=== PATIENT | female | born 1990 | race American Indian/Alaskan Native ===

== ENCOUNTER 2020-05-31 09:35 | Outpatient (CLI) | payer OTHER ==
--- NOTE | 2020-05-31 11:03 | Ultrasound Report ---
ULTRASOUND BREAST BILATERAL COMPLETE, 05/31/2020 CLINICAL INFORMATION / INDICATION: MASTODYNIA. TECHNIQUE: Complete sonographic evaluation of all 4 quadrants and retroareolar region was performed. COMPARISON: None available. FINDINGS: Right breast: Minimally dilated subareolar ducts are seen without a distinct intraductal lesion. No o ther significant abnormality. Left breast: Scattered intramammary nodes without suspicious features are noted along with mildly com plex cysts/nodules, many of which are too small to completely characterize, without clearly suspiciou s features. No other significant abnormality. IMPRESSION: No sonographic evidence of malignancy. Follow up recommendation: Unless otherwise clinically indicated, recommend patient return to routine screening mammography at age 42. BI-RADS Category 2: Benign. A normal or "negative" report should not preclude biopsy or follow-up of a clinically suspicious find ing. Signer Name: Tylor Lomeli MD Signed: 05/31/2020 10:59 AM Workstation Name: [id number]
== END 2020-05-31 09:36 | disposition home or self-care (01) ==
LOC: SPVWC 09:35
PROVIDERS: ATTEND Surgery
DX: N64.4 Mastodynia (principal)